=== PATIENT | female | born 1995 | race American Indian/Alaskan Native ===

== ENCOUNTER 2020-03-29 22:43 | Emergency (ER) | payer SELFPAY ==
[2020-03-30 00:36] VITALS: BP 128/78
[2020-03-30 01:33] LABS: Basophils % (Auto) 0.3 % (0.0-1.8); Eosinophils # (Auto) 0.1 K/mm3 (0.0-0.4); Eosinophils % (Auto) 1.6 % (0.0-4.3); Hematocrit 34.2 % (30.3-42.9); Hemoglobin 10.7 gm/dl (10.1-14.3); Lymphocytes # (Auto) 1.7 K/mm3 (1.2-5.4); Lymphocytes % (Auto) 19.1 % (13.4-35.0); Mean Corpuscular HGB Conc 31 % (30-34); Mean Corpuscular Volume 72 fl (79-97); Monocytes % (Auto) 11.6 % (0.0-7.3); Platelet Count 307 K/mm3 (140-440); Red Blood Count 4.78 M/mm3 (3.65-5.03)
[2020-03-30 01:41] LABS: Alanine Aminotransferase 11 units/L (7-56); Albumin 4.2 g/dL (3.9-5); Blood Urea Nitrogen 10 mg/dL (7-17); Calcium 9.2 mg/dL (8.4-10.2); Hemolysis Index 1
[2020-03-30 01:42] LABS: Bacteria,Urine 1+ /HPF (Negative); Bilirubin,Urine NEG (Negative); Blood,Urine MOD (Negative); Color,Urine Yellow (Yellow); Mucus,Urine FEW /HPF; Protein,Urine <15 mg/dL mg/dL (Negative); Urobilinogen,Urine < 2.0 mg/dL (<2.0)
[2020-03-30 01:42] LABS: BUN/Creatinine Ratio 14
[2020-03-30 01:45] LABS: Red Cell Distribution Width 20.3 % (13.2-15.2)
[2020-03-30] MEDS ORDERED: ONDANSETRON 4 MG/2 ML INJ IV ONE (03:21)
[2020-03-30] MEDS ORDERED: KETOROLAC 30 MG/1 ML INJ IV ONE (03:21)
[2020-03-30] MEDS ORDERED: FAMOTIDINE 20 MG/2 ML INJ IV ONE (03:21)
--- NOTE | 2020-03-30 04:26 | Emergency Department Report ---
ED Abdominal Pain HPI - General Chief Complaint: Abdominal Pain Stated Complaint: RT SIDE PAIN/SWOLLEN Source: patient Mode of arrival: Ambulatory Limitations: No Limitations - History of Present Illness Initial Comments: Patient is a A0 24-year-old -[place] female with no past medical history presents to the ED with complaint of acute onset persistent severe right upper quadrant pain and right flank pain for the last 2 days. Patient states that the pain is worse with palpation or movement. Patient denies nausea or vomiting or diarrhea, fever, chills, cough, traumatic injury, heavy lifting, dysuria, urinary frequency and urgency, chest pain, shortness of breath, low back pain, vaginal bleeding, hematuria, headache or sore throat. MD Complaint: abdominal pain (Right flank and RUQ pain), flank pain (right flank pain) -: Sudden, days(s) (2) Location: RUQ, R flank Radiation: RUQ, R flank Migration to: no migration Severity: severe Severity scale (0 -10): 7 Quality: aching, sharp Consistency: constant Improves With: nothing Worsens With: movement Associated Symptoms: denies other symptoms. denies: nausea, vomiting, diarrhea, fever, chills, dysuria, hematemesis, hematochezia, melena, hematuria, anorexia, other - Related Data LMP Date: 03/22/20 Previous Rx's Medication Instructions Recorded Last Taken Type Dicyclomine [Bentyl] 20 mg PO Q6H PRN #24 tablet 03/30/20 Unknown Rx Famotidine [Pepcid] 20 mg PO BID #30 tablet 03/30/20 Unknown Rx Ketorolac [Toradol] 10 mg PO Q8H PRN #20 tablet 03/30/20 Unknown Rx Ondansetron [Zofran Odt] 4 mg PO Q6HR PRN #15 tab.rapdis 03/30/20 Unknown Rx Allergies Allergy/AdvReac Type Severity Reaction Status Date / Time Penicillins Allergy Hives Verified 03/30/20 00:40 ED Review of Systems ROS: Stated complaint: RT SIDE PAIN/SWOLLEN Other details as noted in HPI Constitutional: denies: chills, fever Eyes: denies: eye pain, eye discharge, vision change ENT: denies: ear pain, throat pain Respiratory: denies: cough, shortness of breath, wheezing Cardiovascular: denies: chest pain, palpitations Endocrine: no symptoms reported Gastrointestinal: abdominal pain (Right flank and right upper quadrant). denies: nausea, diarrhea Genitourinary: denies: urgency, dysuria, discharge Musculoskeletal: denies: back pain, joint swelling, arthralgia Skin: denies: rash, lesions Neurological: denies: headache, weakness, paresthesias Psychiatric: denies: anxiety, depression Hematological/Lymphatic: denies: easy bleeding, easy bruising ED Past Medical Hx - Past Medical History Previous Medical History?: No - Surgical History Past Surgical History?: No - Social History Smoking Status: Never Smoker Substance Use Type: None - Medications Home Medications: Home Medications Medication Instructions Recorded Confirmed Last Taken Type Dicyclomine [Bentyl] 20 mg PO Q6H PRN #24 tablet 03/30/20 Unknown Rx Famotidine [Pepcid] 20 mg PO BID #30 tablet 03/30/20 Unknown Rx Ketorolac [Toradol] 10 mg PO Q8H PRN #20 tablet 03/30/20 Unknown Rx Ondansetron [Zofran Odt] 4 mg PO Q6HR PRN #15 tab.rapdis 03/30/20 Unknown Rx ED Physical Exam - General Limitations: No Limitations General appearance: alert, in no apparent distress - Head Head exam: Present: atraumatic, normocephalic, normal inspection - Eye Eye exam: Present: normal appearance, PERRL, EOMI Pupils: Present: normal accommodation - ENT ENT exam: Present: normal exam, normal orophraynx, mucous membranes moist, TM's normal bilaterally, normal external ear exam - Neck Neck exam: Present: normal inspection, full ROM - Respiratory Respiratory exam: Present: normal lung sounds bilaterally. Absent: respiratory distress, wheezes, rales, rhonchi, chest wall tenderness, accessory muscle use, prolonged expiratory - Cardiovascular Cardiovascular Exam: Present: regular rate, normal rhythm, normal heart sounds. Absent: systolic murmur, diastolic murmur, rubs, gallop - GI/Abdominal GI/Abdominal exam: Present: soft, tenderness (Palpable right upper quadrant and right flank tenderness), normal bowel sounds. Absent: guarding, rebound, hyperactive bowel sounds, hypoactive bowel sounds - Extremities Exam Extremities exam: Present: normal inspection, full ROM, normal capillary refill - Back Exam Back exam: Present: normal inspection, full ROM. Absent: tenderness, CVA tenderness (R), muscle spasm, paraspinal tenderness, vertebral tenderness - Neurological Exam Neurological exam: Present: alert, oriented X3, CN II-XII intact, normal gait, reflexes normal - Psychiatric Psychiatric exam: Present: normal affect, normal mood - Skin Skin exam: Present: warm, dry, intact, normal color. Absent: rash ED Course Vital Signs 03/30/20 00:32 Temperature 98.2 F Pulse Rate 115 H Respiratory 17 Rate Blood Pressure 128/78 O2 Sat by Pulse 100 Oximetry ED Medical Decision Making - Lab Data Result diagrams: 03/30/20 00:55 03/30/20 00:55 - Radiology Data Radiology results: report reviewed, image reviewed Findings [facility] [address] [place] [address] Cat Scan Report Signed Patient: MARGARET FORREST MR#: [id number] : 1995 Acct:[id number] Age/Sex: 24 / F ADM Date: 03/29/20 Loc: ED Attending Dr: Ordering Physician: AURY PERES Date of Service: 03/30/20 Procedure(s): CT abdomen pelvis w con Accession Number(s): [id number] cc: AURY PERES CT ABDOMEN AND PELVIS WITH CONTRAST INDICATION / CLINICAL INFORMATION: Patient complains of R.U.Q. and Right flank pain x 1 day. TECHNIQUE: Axial CT images were obtained through the abdomen and pelvis after IV contrast. All CT scans at this location are performed using CT dose reduction for ALARA by means of automated exposure control. COMPARISON: None available. FINDINGS: LOWER CHEST: No significant abnormality. LIVER: No significant abnormality. GALLBLADDER: No significant abnormality. BILE DUCTS: No significant abnormality. PANCREAS: No significant abnormality. SPLEEN: No significant abnormality. ADRENALS: No significant abnormality. RIGHT KIDNEY and URETER: No significant abnormality. LEFT KIDNEY and URETER: No significant abnormality. STOMACH and SMALL BOWEL: No significant abnormality. COLON: No significant abnormality. APPENDIX: No significant abnormality. PERITONEUM: Small amount of fluid is present along the right colon extending into the cul-de-sac several loops of dilated small bowel present including the terminal ileum. No free air. No fluid collection. LYMPH NODES: No significant adenopathy. AORTA and ARTERIES: No significant abnormality. IVC and VEINS: No significant abnormality. URINARY BLADDER: No significant abnormality. REPRODUCTIVE ORGANS: No significant abnormality. ADDITIONAL FINDINGS: None. SKELETAL SYSTEM: No significant abnormality. IMPRESSION: 1. Abnormal appearance right lower quadrant with fluid surrounding the right- sided colon extending into the cul-de-sac with associated dilatation of multiple loops of small bowel especially the terminal ileum without definite evidence of bowel wall thickening. Etiology unclear Signer Name: Jose Gomez MD Signed: 03/30/2020 4:56 AM Workstation Name: [id number] Transcribed By: ARIADNE Dictated By: Jose Gomez MD Electronically Authenticated By: Jose Gomez MD Signed Date/Time: 03/30/20 0456 DD/ 0449 TD/TT: - Medical Decision Making This is a A0 24-year-old -[place] female with no past medical history presents to the ED with complaint of acute onset persistent severe right upper quadrant pain and right flank pain for the last 2 days. Patient states that the pain is worse with palpation or movement. In the ED, patient is alert and oriented x3 and is not in distress. Patient was treated for pain in the ED. Lab test results were reviewed and are all nonactionable including urinalysis. Abdomen pelvis CT scan with contrast was unremarkable except for an abnormal appearance right lower quadrant with fluid surrounding the right-sided colon extending into the cul-de-sac with associated dilatation of multiple loops of small bowel especially the terminal ileum without definite evidence of bowel wall thickening. Etiology unclear. On reevaluation, patient's pain is well controlled medication. Patient was discharged home on pain medications and was advised to follow-up with her primary care physician in 3 to 5 days for reevaluation or return to the ED immediately if symptoms get worse. - Differential Diagnosis Kidney stones; cholelithiasis; pancreatitis; UTI; appendicitis; GERD Critical care attestation.: If time is entered above; I have spent that time in minutes in the direct care of this critically ill patient, excluding procedure time. ED Disposition Clinical Impression: Acute abdominal pain in right flank Disposition: DC-01 TO HOME OR SELFCARE Is pt being admited?: No Does the pt Need Aspirin: No Condition: Stable Instructions: Abdominal Pain (ED), Flank Pain (ED) Additional Instructions: All lab test results are unremarkable and abdomen pelvis CT scan without contrast showed no acute abnormalities but nonspecific findings. Therefore take medications with food, drink plenty of fluids and follow-up with your primary care physician in 3 to 5 days for reevaluation. Return to the ED immediately if your symptoms get worse. Prescriptions: Dicyclomine [Bentyl] 20 mg PO Q6H PRN #24 tablet PRN Reason: Abdominal cramps Famotidine [Pepcid] 20 mg PO BID #30 tablet Ketorolac [Toradol] 10 mg PO Q8H PRN #20 tablet PRN Reason: Pain Ondansetron [Zofran Odt] 4 mg PO Q6HR PRN #15 tab.rapdis PRN Reason: Nausea Referrals: [facility] [Provider Group] - 7-10 days Time of Disposition: 04:28 Print Language: AMERICAN
--- NOTE | 2020-03-30 05:00 | Cat Scan Report ---
CT ABDOMEN AND PELVIS WITH CONTRAST INDICATION / CLINICAL INFORMATION: Patient complains of R.U.Q. and Right flank pain x 1 day. TECHNIQUE: Axial CT images were obtained through the abdomen and pelvis after IV contrast. All CT scans at this location are performed using CT dose reduction for ALARA by means of automated exposure control. COMPARISON: None available. FINDINGS: LOWER CHEST: No significant abnormality. LIVER: No significant abnormality. GALLBLADDER: No significant abnormality. BILE DUCTS: No significant abnormality. PANCREAS: No significant abnormality. SPLEEN: No significant abnormality. ADRENALS: No significant abnormality. RIGHT KIDNEY and URETER: No significant abnormality. LEFT KIDNEY and URETER: No significant abnormality. STOMACH and SMALL BOWEL: No significant abnormality. COLON: No significant abnormality. APPENDIX: No significant abnormality. PERITONEUM: Small amount of fluid is present along the right colon extending into the cul-de-sac johan ral loops of dilated small bowel present including the terminal ileum. No free air. No fluid collecti on. LYMPH NODES: No significant adenopathy. AORTA and ARTERIES: No significant abnormality. IVC and VEINS: No significant abnormality. URINARY BLADDER: No significant abnormality. REPRODUCTIVE ORGANS: No significant abnormality. ADDITIONAL FINDINGS: None. SKELETAL SYSTEM: No significant abnormality. IMPRESSION: 1. Abnormal appearance right lower quadrant with fluid surrounding the right-sided colon extending in to the cul-de-sac with associated dilatation of multiple loops of small bowel especially the terminal ileum without definite evidence of bowel wall thickening. Etiology unclear Signer Name: Jose Gomez MD Signed: 03/30/2020 4:56 AM Workstation Name: [id number]
== END 2020-03-30 05:20 | disposition home or self-care (01) ==
LOC: ED 22:43
DX: R10.11 Right upper quadrant pain (principal); Z88.0 Allergy status to penicillin
CPT/HCPCS: 36415; 74177; 80053; 81001; 84703; 85025; 96374; 96375; 99284; J1885; J2405; Q9967